=== PATIENT | female | born 1995 | race Caucasian/White ===

== ENCOUNTER 2017-04-02 20:20 | Observation (INO) | payer OTHER ==
[~2017-04-02] VITALS: Ht 157.5 cm; Wt 59.0 kg
[2017-04-02 21:10] VITALS: BP 106/57
[2017-04-02] MEDS ORDERED: PREN1SGL25 PO (21:15)
== END 2017-04-02 22:00 | disposition home or self-care (01) ==
LOC: MLD 20:20
PROVIDERS: ADMIT Obstetrics & Gynecology; ATTEND Obstetrics & Gynecology
DX: O26.893 Other specified pregnancy related conditions, third trimester (principal); R10.9 Unspecified abdominal pain; Z3A.30 30 weeks gestation of pregnancy
CPT/HCPCS: 76805; 81000; G0378; Q0092